=== PATIENT | male | born 1950 | race Caucasian/White ===

== ENCOUNTER 2020-05-14 09:21 | Emergency (ER) | payer MEDICARE ==
[~2020-05-14] VITALS: Ht 180.3 cm; Wt 120.2 kg
[~2020-05-14 09:21] MED LIST: ALLO300 PO; AMLO5 PO; Acetaminophen325 M1 PO; BASAGLAR K100 UNIT/1 SC; CALCA500CH PO; CEFD300 PO; CIPR500 PO; DOXY100 PO; FURO40 PO; INSULANPEN SC; LIRA0.6P SC; LISI20 PO; MAGGLU250 PO; METF500 PO; METO10 PO; METR500 PO; Mag-G500 MG PO; OXYACE5T PO; PIOG30 PO; POTCHL10ER PO; Simvastatin20 MG PO; Zocor20 MG PO
[2020-05-14 10:05] LABS: Calcium, Ionized (POC) 1.26 mmol/L (1.10-1.46); Chloride (POC) 106 mmol/L (98-108); Creatinine (POC) 1.2 mg/dL (0.8-1.3); Glucose (ISTAT POC) 175 mg/dL (70-99); Hemoglobin (POC) 14.3 g/dL (13.5-17.5); Potassium (POC) 4.9 mmol/L (3.5-5.5); Sodium (POC) 139 mmol/L (135-148); Total CO2 (POC) 23 mmol/L (21-32)
== END 2020-05-14 10:47 | disposition home or self-care (01) ==
LOC: ER 09:21
PROVIDERS: Emergency Medicine
DX: R79.9 Abnormal finding of blood chemistry, unspecified (principal); I10 Essential (primary) hypertension; E11.9 Type 2 diabetes mellitus without complications; Z88.0 Allergy status to penicillin; Z88.2 Allergy status to sulfonamides; Z88.1 Allergy status to other antibiotic agents; Z79.4 Long term (current) use of insulin; Z79.899 Other long term (current) drug therapy
CPT/HCPCS: 36415; 80047; 85014; 99283